=== PATIENT | female | born 1955 | race Caucasian/White ===

== ENCOUNTER → 2017-11-14 | Outpatient (CLI) | payer BC, OTHER ==
[~2017-11-14] MED LIST: CLAR5TAB13 PO; CYCL-36 PO; FEXO180 PO; FLON0.053; HUMIBIDDM PO; HYDR10TA16 PO; LEVA500T33 PO; LOSA100T3 PO; NORC5TAB PO; PREG100 PO; SIMV5TAB32 PO; TELM40 PO
== END ==
LOC: CPRE 08:46
PROVIDERS: ATTEND Obstetrics & Gynecology
DX: D27.9 Benign neoplasm of unspecified ovary (principal)

== ENCOUNTER → 2017-11-15 | Day surgery (SDC) | payer BC, OTHER ==
[~2017-11-15] VITALS: Ht 160 cm; Wt 63.5 kg
[~2017-11-15] MED LIST changes: +*MEPERIDINE 25 MG INJ VIAL PERIprocedural Use ONLY ONE; +APREPITANT 40 MG CAP ONE; +BUPIVACAINE/EPINEPHRINE 0.25% PF 10 ML VIAL INFIL ONE; +CHLORHEXIDINE GLUCONATE 2 % 1 PACK (2 CLOTHS) TOPICAL PRN; +DEXAMETHASONE SOD PHOS 4 MG/ML VIAL IV ONE; +DO NOT ADM ANY ANTICOAGULANT DRUGS PRN; +LACTATED RINGER'S 1000 ML INJ 1,000 ML IV ONE; +LACTATED RINGER'S 1000 ML IV PRN; +LIDOCAINE HCL 1% PF 5 ML SYRINGE OTHER ONE; +MEPERIDINE HCL 25 MG/ML VIAL IM PRN; +METOPROLOL TARTRATE 25 MG TAB PO PRN; +MIDAZOLAM HCL 2 MG/2 ML VIAL ONE; +ONDANSETRON HCL 4 MG/2 ML VIAL IV PUSH ONE; +ONDANSETRON HCL 4 MG/2 ML VIAL IV PUSH PRN; +PHENYLEPH/NS 1000 MCG/10 ML SYR IV ONE; +POVIDONE IODINE 5% (ANTISEPSIS KIT) 4 APPLICATIONS EACH NARE PRN; +PROPOFOL 200 MG/20 ML AMP IV ONE; +ROCURONIUM INJ 50 MG/5 ML SYRINGE IV PUSH ONE; +SODIUM CHLORID 0.9% 500 ML IV PRN; +SUGAMMADEX SODIUM 200 MG/2 ML VIAL IV PUSH ONE; +ceFAZolin 1,000 MG/NS 100 ML IV SCH; +ePHEDrine/NS 25 MG/5 ML SYRINGE IV ONE; +oxyCODONE/ACETAMINOPHEN 5 MG/325 MG TAB PO PRN
[2017-11-15 17:01] VITALS: BP 144/70; PULSE 50; RESP 18; TEMP 97.8; O2SAT 95
--- NOTE | 2017-11-15 17:11 | MP ---
cc: FLAVIA CAIN DATE OF SURGERY 11/15/17 1955 PREOPERATIVE DIAGNOSIS Left adnexal mass consistent with dermoid and left lower quadrant pain POSTOPERATIVE DIAGNOSIS Left adnexal mass consistent with dermoid and left lower quadrant pain PROCEDURE Laparoscopic bilateral salpingo-oophorectomy ANESTHESIA General endotracheal SURGEON Junie Cian MD [employer] OR staff FINDINGS Examination under anesthesia did not reveal any palpable masses. Upon entering into the intraperitoneal cavity, it was noted that she had a small but classic ovarian appearance of a dermoid cyst basically incorporating the entirety of the left ovary. The right ovary was unremarkable. There was a plethora of deana from her previous LAVH. Both adnexa were easily removed and placed in an EndoCatch without difficulty. The dermoid was pierced while it was in the EndoCatch to allow for easy removal through the small incision and removed with the bag intact so no spillage occurred. The incisions were closed unremarkably. There was no evidence of other pathology or iatrogenic injury. Sponge, instrument and needle count were correct. PROCEDURE IN DETAIL The patient was taken to the operating room after being seen in preoperative. Her permit had been reviewed. She was placed under general endotracheal anesthesia in the dorsal lithotomy position. She had sequentials on, a Jasso was placed and she was prepped and draped in the usual sterile fashion. A time-out was performed. A 5 mm incision was made above the umbilicus because she has had three previous laparoscopies through the inferior portion. Then the 5-mm trocar and sleeve were placed with the scope under direct visualization. We entered a pelvis that was free of adhesions, despite her multiple laparoscopies. Right lower quadrant incision was made 5 mm and a left lower quadrant incision of 12 mm was made. The trocar sleeves were placed in each one of these. All three were infiltrated with Marcaine with epinephrine. The harmonic scalpel was used to basically transect the infundibulopelvic ligament and remove the ovaries on both sides from the sidewall with care to avoid structures such as ureter, iliac and nerves. They were placed in the cul-de-sac and then the EndoCatch was placed through the left lower quadrant incision. Both ovaries and tubes were placed into the bag. The oral cyst was pierced with sebaceous material oozing out consistent with a dermoid. This allowed the bag to be brought through the incision on the left without extending it and the bag was intact and prevented any spillage. The fascia was closed with a single interrupted and then the skin was closed with Monocryl. She was placed in dorsal supine position. The Jasso was removed and she was taken to recovery room in stable condition. MD NYA Mai/ /2:44 PM /4:47 PM MTDKole
--- NOTE | 2017-11-15 17:15 | PD.OP ---
Operative Report Date of Surgery: Nov 15, 2017 Preoperative Diagnosis: left adnexal mass Postoperative Diagnosis: left dermoid Procedure: Laparoscopic BSO Anesthesia: BRYCE Surgeon: Apolonia Lomeli Transition Rn(s): OR staff Operation and Findings: small left dermoid dictated Apolonia Lomeli MD Nov 15, 2017 17:15
--- NOTE | 2017-11-15 17:16 | HHI.DCPOC ---
Discharge Care Plan Report Symptoms to Your Doctor -Temperature above 100.5 degrees -Redness, of incision or excessive or foul smelling drainage -Unusual pain or calf pain -Increased vaginal bleeding -Painful or difficulty urinating -Feelings of extreme sadness or anxiety after 2 weeks Goals to Promote Your Health * To prevent worsening of your condition and complications * To maintain your health at the optimal level Directions to Meet Your Goals Take your medications as prescribed Follow your dietary instruction Follow activity as directed Ensure plenty of rest for recovery Drink fluids for hydration Keep your appointments as scheduled Take your immunizations and boosters as scheduled If your symptoms worsen call your PCP, if no PCP go to Urgent Care Center or Emergency Room Smoking is Dangerous to Your Health. Avoid second hand smoke Call the 24-hour crisis hotline for domestic abuse at Apolonia Lomeli MD Nov 15, 2017 17:16
--- NOTE | 2017-11-15 21:00 | EKG ---
Date Performed: 11/15/2017 Time Performed: 11:50:20 PTAGE: 62 years EKG: SINUS BRADYCARDIA POSSIBLE LEFT ATRIAL ENLARGEMENT POSSIBLE RIGHT VENTRICULAR CONDUCTION DE LAY BORDERLINE ECG PREVIOUS TRACING : 04/22/2008 12.44 Compared to prior tracing no significant change DOCTOR: Shashi Solano Interpretating Date/Time 11/15/2017 20:59:11
== END | disposition home or self-care (01) ==
LOC: HSDC 11:23
PROVIDERS: ATTEND Obstetrics & Gynecology
DX: D27.1 Benign neoplasm of left ovary (principal); D27.0 Benign neoplasm of right ovary; D28.2 Benign neoplasm of uterine tubes and ligaments; I10 Essential (primary) hypertension; Z01.810 Encounter for preprocedural cardiovascular examination
CPT/HCPCS: 00840; 58661; 86850; 86900; 86901; 88305; 88307; 93005; J0690; J1100; J2175; J2250; J2370; J2405; J3010; J7120; J8501